=== PATIENT | male | born 1975 | race Caucasian/White ===

== ENCOUNTER 2019-06-13 10:22 | Emergency (ER) | payer OTHER, SELFPAY ==
[2019-06-13 10:25] VITALS: BP 151/93; PULSE 74; RESP 20; TEMP 37.1; O2SAT 98; BMI 30.2
--- NOTE | 2019-06-13 10:30 | DI.RAD.S_ITS ---
PROCEDURE: XR CHEST 1V INDICATIONS: chest pain TECHNIQUE: One view of the chest was acquired. COMPARISON: [facility], CT, SOFT TISSUE NECK W CONTRAST, 09/24/2016, 12:23. FINDINGS: Surgical changes and devices: None. Lungs and pleura: An incomplete inspiratory result is noted, causing a crowded appearance to the lung markings. No focal infiltrates are seen. No pneumothorax or significant pleural effusions are seen. Mediastinum: Mediastinal contours appear normal. Heart size is normal. Bones and chest wall: No suspicious bony lesions. Overlying soft tissues appear unremarkable. IMPRESSION: Portable chest within normal limits. Dictated by: Wyatt Mota M.D. on 06/13/2019 at 10:20 Approved by: Wyatt Mota M.D. on 06/13/2019 at 10:20
[2019-06-13 10:47] LABS: Add Manual Diff / Slide Review NO; Basophils Absolute Auto 100 /uL (0-100); Basophils Percent Auto 0.6 % (0-2); Eosinophils Absolute Auto 100 /uL (0-450); Eosinophils Percent Auto 1.7 % (2-4); Hematocrit 43.6 % (41-53); Hemoglobin 15.1 g/dL (13.5-17.5); Lymphocytes Absolute Auto 1800 /uL (1100-4500); Lymphocytes Percent Auto 20.6 % (25-40); Mean Corpuscular HGB Conc 34.6 % (30-36); Mean Corpuscular Hemoglobin 33.2 PG (26-34); Mean Corpuscular Volume 95.8 fL (80-100); Monocytes Absolute Auto 600 /uL (0-900); Monocytes Percent Auto 6.6 % (3-14); Neutrophils Absolute Auto 6300 /uL (1500-7000); Neutrophils Percent Auto 70.5 % (50-75); Platelet Count 255 X10^3/uL (150-400); Red Blood Cell Count 4.55 X10^6/uL (4.5-5.9); Red Cell Distribution Width 13.6 % (11.6-14.8); White Blood Cell Count 8.9 X10^3/uL (4.5-11.0)
[2019-06-13 10:53] LABS: INR 0.9 (0.9-1.3); Prothrombin Time 10.5 SECONDS (10.1-12.7)
[2019-06-13 10:56] LABS: PTT Partial Thromboplastin Tim 32 SECONDS (26.4-36.2)
[2019-06-13 10:58] LABS: Lactate (Lactic Acid) 1.1 mmol/L (0.7-2.1)
[2019-06-13] MEDS: ASPIRIN 81 MG CHEW TAB 324 MG PO (10:59)
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
[2019-06-13 11:00] LABS: Alanine Aminotransferase 95 IU/L (<50); Albumin Globulin Ratio 1.3 (1.0-2.8); Alkaline Phosphatase 65 U/L (38-126); Aspartate Aminotransferase 84 IU/L (17-59); BUN Creatinine Ratio 10.8 (6-22); Bilirubin Total 0.4 mg/dL (0.2-1.3); Blood Urea Nitrogen 7 mg/dL (9-20); C-Reactive Protein Quant < 0.5 mg/dL (<1.0); Calcium 10.1 mg/dL (8.4-10.2); Carbon Dioxide 25 mmol/L (22-32); Chloride 101 mmol/L (98-107); Creatine Kinase 76 U/L (55-170); Estimated Glomerular Filt Rate > 60.0 mL/min (>60); Globulin 3.9 g/dL (1.7-4.1); Glucose 99 mg/dL (70-100); HEMOLYSIS < 15 (0-50); Lipase 40 U/L (23-300); Potassium 3.9 mmol/L (3.4-5.1); Sodium 138 mmol/L (137-145); Total Protein 8.9 g/dL (6.3-8.2)
[2019-06-13] MEDS: SODIUM CHLORIDE 0.9% 1,000 ML 1000 ML IV (11:00)
[2019-06-13] MEDS: KETOROLAC 60 MG/2 ML VIAL 30 MG IV (11:00)
[2019-06-13 11:09] LABS: Troponin I < 0.012 ng/mL (0.01-0.034)
[2019-06-13 11:32] LABS: Ferritin 121 ng/mL (18-464)
[2019-06-13] MEDS: ALUMINUM HYDROXIDE PO (11:33)
[2019-06-13] MEDS: LIDOCAINE PO (11:33)
[2019-06-13] MEDS: SIMETHICONE PO (11:33)
[2019-06-13] MEDS: MAGNESIUM HYDROXIDE PO (11:33)
[2019-06-13] MEDS: [UNRECOGNIZED DRUG - OTHER] PO (11:33)
[2019-06-13 11:51] VITALS: BP 130/75; PULSE 73; RESP 20
[2019-06-13] MEDS: PANTOPRAZOLE 40 MG VIAL IV (12:31)
[2019-06-13 13:19] VITALS: O2SAT 98
== END 2019-06-13 13:19 | disposition home or self-care (01) ==
PROVIDERS: Emergency Provider Emergency Medicine; PCP Otolaryngology
DX: R07.89 Other chest pain (principal); K21.9 Gastro-esophageal reflux disease without esophagitis
CPT/HCPCS: 36415; 71045; 80053; 81003; 82550; 82728; 83605; 83690; 84484; 85025; 85610; 85730; 86140; 93005; 96361; 96374; 96375; 99284; C9113; J1885

== ENCOUNTER 2020-04-03 12:49 | Emergency (ER) | payer OTHER, SELFPAY ==
[2020-04-03 13:01] VITALS: BP 127/77; PULSE 78; RESP 16; TEMP 36.7; O2SAT 97; BMI 28.1
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
[2020-04-03] MEDS: HYDROCODONE/ACET 5/325 TABLET 1 TAB PO (14:00)
[2020-04-03 14:25] VITALS: BP 132/79; PULSE 85; RESP 16; O2SAT 96
== END 2020-04-03 14:35 | disposition home or self-care (01) ==
PROVIDERS: Emergency Provider Nurse Practitioner Family; PCP Otolaryngology
DX: S42.032A Displaced fracture of lateral end of left clavicle, initial encounter for closed fracture (principal); S40.012A Contusion of left shoulder, initial encounter; S09.90XA Unspecified injury of head, initial encounter; V29.9XXA Motorcycle rider (driver) (passenger) injured in unspecified traffic accident, initial encounter
CPT/HCPCS: 70450; 72125; 73030; 99281; 99284